=== PATIENT | female | born 1975 | race Caucasian/White ===

== ENCOUNTER 2024-10-06 08:51 | Day surgery (SDC) | payer MEDICAID, OTHER ==
[~2024-10-06] VITALS: Ht 154.9 cm; Wt 55.0 kg
[2024-10-06] MEDS: SODIUM CHLORIDE 0.9% 1,000 ML IV ONE (10:00)
[2024-10-06] MEDS ORDERED: CHOL200059 PO (10:04)
[2024-10-06] MEDS ORDERED: CALC-1124 PO (10:04)
[2024-10-06] MEDS ORDERED: MAGN400T57 PO (10:04)
[2024-10-06] MEDS ORDERED: LIDOCAINE/PF 2% 5 ML VIAL IM ONE (12:00)
[2024-10-06] MEDS ORDERED: PROPOFOL 1% 20 ML VIAL IVP ONE (12:00)
== END 2024-10-06 11:55 | disposition home or self-care (01) ==
LOC: SURGERY 08:51
PROVIDERS: ATTEND Internal Medicine Gastroenterology
DX: R19.4 Change in bowel habit (principal); K21.9 Gastro-esophageal reflux disease without esophagitis; K29.70 Gastritis, unspecified, without bleeding
CPT/HCPCS: 45380; 43239; 84703; 88305; J2704; J3490